=== PATIENT | female | born 1980 | race Caucasian/White ===

== ENCOUNTER 2020-06-15 05:18 | Inpatient (IN) | payer BC ==
[~2020-06-15] VITALS: Ht 152.4 cm; Wt 97.7 kg
[~2020-06-15 05:18] MED LIST: IBUP-1223 PO; OXYC-302 PO; SENN-52 PO
[2020-06-15] MEDS ORDERED: LACTATED RINGERS 1,000 ML IV SCH (05:50)
[2020-06-15] MEDS ORDERED: OXYTOCIN 30U/ 0.9% NaCL 500ML 500 ML ONE (05:51)
[2020-06-15] MEDS ORDERED: METOCLOPRAMIDE 5 MG/ML, 2ML ONE (05:52)
[2020-06-15] MEDS ORDERED: NEWBORN KIT ONE (05:52)
[2020-06-15] MEDS ORDERED: LACTATED RINGERS 1,000 ML IVBOLUS ONE (06:00)
[2020-06-15] MEDS ORDERED: SODIUM CITRATE/CITRIC ACID 30 ML UDC PO ONE (06:00)
[2020-06-15] MEDS ORDERED: METOCLOPRAMIDE 5 MG/ML, 2ML IV ONE (06:00)
[2020-06-15 06:11] VITALS: BP 116/67
[2020-06-15 06:23] LABS: BASOPHILS # (AUTO) 0.02 x10^3/uL (0-0.1); BASOPHILS % (AUTO) 0 % (0-1); EOSINOPHILS % (AUTO) 1 % (1-7); LYMPHOCYTES # (AUTO) 1.97 x10^3/uL (1-3.4); LYMPHOCYTES % (AUTO) 22 % (22-44); MD NO; MEAN CORPUSCULAR HEMOGLOBIN 35.9 pg (27.0-34.8); MEAN CORPUSCULAR HGB CONC 33.7 g/dL (32.4-35.8); MEAN PLATELET VOLUME 7.1 fL (7.4-10.4); MONOCYTES % (AUTO) 6 % (2-9); NEUTROPHILS # (AUTO) 6.54 x10^3/uL (1.8-6.8); NEUTROPHILS % (AUTO) 72 % (42-75); PLATELET COUNT 294 x10^3/uL (130-400); RED BLOOD COUNT 3.46 x10^6/uL (3.82-5.3); RED CELL DISTRIBUTION WIDTH 13.4 % (9.6-15.2)
[2020-06-15] MEDS ORDERED: PREN1TAB62 PO (06:25)
[2020-06-15] MEDS ORDERED: FENTANYL PF 100 MCG/2ML ONE (07:19)
[2020-06-15] MEDS ORDERED: OXYTOCIN 10 UNITS/ML, 1ML ONE ×4 (07:21)
[2020-06-15] MEDS ORDERED: KETOROLAC 30 MG/1 ML ONE (07:21)
[2020-06-15] MEDS ORDERED: CEFAZOLIN 1,000 MG ONE ×2 (07:21)
[2020-06-15] MEDS ORDERED: EPHEDRINE 50 MG/ML, 1ML ONE (08:02)
[2020-06-15] MEDS ORDERED: DIPHENHYDRAMINE 50 MG/ML, 1ML IVPush PRN (09:00)
[2020-06-15] MEDS ORDERED: MEPERIDINE/PF 25MG/0.5ML IVPush PRN (09:00)
[2020-06-15] MEDS ORDERED: OXYcodone 5 MG/5 ML ORAL.SOL UDC PO PRN (09:00)
[2020-06-15] MEDS ORDERED: EPHEDRINE 50 MG/ML, 1ML IVPush PRN (09:00)
[2020-06-15] MEDS ORDERED: METOCLOPRAMIDE 5 MG/ML, 2ML IVPush PRN (09:00)
[2020-06-15] MEDS ORDERED: EPHEDRINE 50 MG/ML, 1ML IM PRN (09:00)
[2020-06-15] MEDS ORDERED: ONDANSETRON 2MG/ML, 2ML IVPush PRN (09:00)
[2020-06-15] MEDS ORDERED: FENTANYL PF 100 MCG/2ML IV PRN (09:00)
[2020-06-15] MEDS ORDERED: morphine SULFATE 10 MG/ML, 1ML IVPush PRN ×3 (09:00→09:30)
[2020-06-15] MEDS: LACTATED RINGERS 1,000 ML IV SCH ×4 (09:01→19:01)
[2020-06-15] MEDS ORDERED: RHOGAM FROM BLOOD BANK 1 NOTE EA IM/IV ONE (09:30)
[2020-06-15] MEDS ORDERED: MEASLES,MUMPS&RUBELLA VACC/PF 0.5 ML SQ-VACC PRN (09:30)
[2020-06-15] MEDS ORDERED: MISOPROSTOL 200 MCG TABLET PR PRN (09:30)
[2020-06-15] MEDS ORDERED: ACETAMINOPHEN 325 MG TABLET PO PRN ×2 (09:30)
[2020-06-15] MEDS ORDERED: CALCIUM CARBONATE 500 MG TAB.CHEW PO PRN (09:30)
[2020-06-15] MEDS ORDERED: ONDANSETRON 2MG/ML, 2ML IV PRN (09:30)
[2020-06-15] MEDS ORDERED: METOCLOPRAMIDE 5 MG/ML, 2ML IV PRN (09:30)
[2020-06-15] MEDS ORDERED: OXYcodone 5 MG/5 ML ORAL.SOL UDC ONE (10:07)
[2020-06-15] MEDS: OXYTOCIN 30U/ 0.9% NaCL 500ML 500 ML IV SCH ×2 (10:12→19:01)
[2020-06-15 11:05] VITALS: BP 64/60
[2020-06-15 15:30] VITALS: BP 93/60
[2020-06-15] MEDS: OXYcodone/APAP 5/325MG TABLET PO PRN ×3 (15:51→23:56)
[2020-06-15] MEDS: KETOROLAC 30 MG/1 ML IV PRN ×2 (16:44→23:56)
[2020-06-15 16:57] LABS: BASOPHILS # (AUTO) 0.03 x10^3/uL (0-0.1); BASOPHILS % (AUTO) 0 % (0-1); EOSINOPHILS # (AUTO) 0.12 x10^3/uL (0-0.4); EOSINOPHILS % (AUTO) 1 % (1-7); LYMPHOCYTES # (AUTO) 1.56 x10^3/uL (1-3.4); LYMPHOCYTES % (AUTO) 17 % (22-44); MD NO; MEAN CORPUSCULAR HEMOGLOBIN 36.2 pg (27.0-34.8); MEAN PLATELET VOLUME 7.1 fL (7.4-10.4); MONOCYTES # (AUTO) 0.25 x10^3/uL (0.2-0.8); MONOCYTES % (AUTO) 3 % (2-9); NEUTROPHILS # (AUTO) 7.51 x10^3/uL (1.8-6.8); NEUTROPHILS % (AUTO) 79 % (42-75); PLATELET COUNT 239 x10^3/uL (130-400); RED BLOOD COUNT 3.16 x10^6/uL (3.82-5.3); RED CELL DISTRIBUTION WIDTH 13.4 % (9.6-15.2)
[2020-06-15 19:10] VITALS: BP_SYST 90; BP_SYST 92; BP_DIAS 56; BP_DIAS 61
[2020-06-15] MEDS: SIMETHICONE 80 MG CHEW TAB PO PRN (20:07)
[2020-06-15] MEDS: DOCUSATE 100 MG CAPSULE PO PRN (20:07)
[2020-06-16] VITALS: BP 113/73
[2020-06-16] MEDS: LACTATED RINGERS 1,000 ML IV SCH ×5 (01:01→17:01)
[2020-06-16] MEDS: OXYcodone/APAP 5/325MG TABLET PO PRN ×4 (04:41→19:01)
[2020-06-16] MEDS: SIMETHICONE 80 MG CHEW TAB PO PRN (04:41)
[2020-06-16 04:45] VITALS: BP 105/67
[2020-06-16] MEDS: OXYTOCIN 30U/ 0.9% NaCL 500ML 500 ML IV SCH ×2 (05:01→15:01)
[2020-06-16] MEDS: KETOROLAC 30 MG/1 ML IV PRN (05:49)
[2020-06-16 07:20] VITALS: BP 96/63
[2020-06-16] MEDS: DOCUSATE 100 MG CAPSULE PO PRN ×2 (09:06→19:01)
[2020-06-16] MEDS: PRENATAL VIT/IRON/FA 1 EACH TABLET PO SCH (09:06)
[2020-06-16] MEDS: IBUPROFEN 600 MG TABLET PO PRN (19:01)
[2020-06-16 20:30] VITALS: BP 116/70
[2020-06-17] MEDS: OXYcodone/APAP 5/325MG TABLET PO PRN ×4 (00:41→13:18)
[2020-06-17] MEDS: SIMETHICONE 80 MG CHEW TAB PO PRN ×3 (00:41→13:17)
[2020-06-17] MEDS: IBUPROFEN 600 MG TABLET PO PRN ×4 (00:42→19:29)
[2020-06-17] MEDS: LACTATED RINGERS 1,000 ML IV SCH ×6 (01:01→21:01)
[2020-06-17] MEDS: OXYTOCIN 30U/ 0.9% NaCL 500ML 500 ML IV SCH ×3 (01:01→21:01)
[2020-06-17 07:35] VITALS: BP 103/64
[2020-06-17] MEDS: PRENATAL VIT/IRON/FA 1 EACH TABLET PO SCH (08:19)
[2020-06-17] MEDS: DOCUSATE 100 MG CAPSULE PO PRN (08:19)
[2020-06-17 20:00] VITALS: BP 112/75
[2020-06-18] MEDS: OXYcodone/APAP 5/325MG TABLET PO PRN ×5 (00:58→18:08)
[2020-06-18] MEDS: IBUPROFEN 600 MG TABLET PO PRN ×2 (06:03→14:08)
[2020-06-18 07:35] VITALS: BP 123/78
[2020-06-18] MEDS: DOCUSATE 100 MG CAPSULE PO PRN (08:11)
[2020-06-18] MEDS: SIMETHICONE 80 MG CHEW TAB PO PRN (08:11)
[2020-06-18] MEDS: PRENATAL VIT/IRON/FA 1 EACH TABLET PO SCH ×2 (08:11→10:03)
[2020-06-18] MEDS ORDERED: OXYC-302 PO (09:34)
[2020-06-18] MEDS ORDERED: IBUP-1222 PO (09:34)
== END 2020-06-18 18:23 | disposition home or self-care (01) | DRG 785 ==
LOC: LDIP 05:47 → 2NW 11:00
PROVIDERS: ADMIT Obstetrics & Gynecology; ATTEND Obstetrics & Gynecology
PROC: 10D00Z1 Extraction of Products of Conception, Low, Open Approach (ICD-10-PCS; principal; 2020-06-15)
PROC: 0UB70ZZ Excision of Bilateral Fallopian Tubes, Open Approach (ICD-10-PCS; 2020-06-15)
PROC: 3E0234Z Introduction of Serum, Toxoid and Vaccine into Muscle, Percutaneous Approach (ICD-10-PCS; 2020-06-15)
DX: O35.8XX0 Maternal care for other (suspected) fetal abnormality and damage, not applicable or unspecified (principal); O34.211 Maternal care for low transverse scar from previous cesarean delivery; O40.3XX0 Polyhydramnios, third trimester, not applicable or unspecified; Z37.0 Single live birth; Z3A.39 39 weeks gestation of pregnancy; Z03.818 Encounter for observation for suspected exposure to other biological agents ruled out; Z23 Encounter for immunization
CPT/HCPCS: 36415; 85025; 86592; 86850; 86900; 87635; 88302; 99285; G0378; J0690; J1885; J3010; J2270; J2590; J2765; J7120